=== PATIENT | female | born 1935 | race African-American/Black ===

== ENCOUNTER → 2020-05-13 | Outpatient (CLI) | payer OTHER ==
[~2020-05-13] MED LIST: ACIDOPHILUS1 EAC4 PO; ASPIR 8181 MG PO; DUONEB 2.5-0.5 M3 ML INH; KLOR-CON 1010 MEQ PO; LASIX 20 MG TAB20 MG PO; LASIX 40 MG TAB40 M2 PO; LOPRESSOR50 PO; MYSOLINE50 MG PO; NORVASC2.5 MG PO; OMEPRAZOLE20 MG PO; PREDNISONE 10 M10 MG PO; ROBITUSSIN-COU237 ML PO; TAMIFLU30 MG PO; TUMS PO; TYLENOL325 MG PO
== END ==
LOC: SJCVCIMAG 07:27
PROVIDERS: ATTEND Internal Medicine
DX: I08.0 Rheumatic disorders of both mitral and aortic valves (principal); I49.3 Ventricular premature depolarization; R94.31 Abnormal electrocardiogram [ECG] [EKG]; R00.0 Tachycardia, unspecified; R00.1 Bradycardia, unspecified; I48.91 Unspecified atrial fibrillation; R00.2 Palpitations; R06.00 Dyspnea, unspecified; I10 Essential (primary) hypertension; Z79.82 Long term (current) use of aspirin; Z79.899 Other long term (current) drug therapy; Z88.0 Allergy status to penicillin